=== PATIENT | female | born 1965 | race Two or more races ===

== ENCOUNTER → 2021-10-23 10:18 | Outpatient (BNVA) | payer OTHER, SELFPAY | PROVIDERS: PCP Physician Assistant Medical; Visit Provider Internal Medicine | DX: B20 Human immunodeficiency virus [HIV] disease (principal); C81.90 Hodgkin lymphoma, unspecified, unspecified site; Z79.899 Other long term (current) drug therapy | CPT/HCPCS: 99202 ==

== ENCOUNTER 2022-02-15 16:25 | Outpatient (REF) | payer OTHER, SELFPAY ==
[2022-02-15 16:48] LABS: MANUAL DIFF FLAG NO
[2022-02-15 17:17] LABS: Basophils Percent Auto 0.6 % (0-2); Eosinophils Absolute Auto 0.1 X10*3/uL (0.0-0.4); Eosinophils Percent Auto 1.5 % (0-4); Hematocrit 33.4 % (37.0-47.0); Hemoglobin 11.1 g/dl (12.0-16.0); Imm Gran Abs Auto 0.01 X10*3/uL (0.00-0.03); Imm Gran Pct Auto 0.3 % (0.0-0.4); Lymphocytes Absolute Auto 1.1 X10*3/uL (1.2-4.9); Mean Corpuscular HGB Conc 33.2 g/dl (31.0-35.0); Mean Corpuscular Hemoglobin 32.1 pg (27.0-33.0); Mean Corpuscular Volume 96.5 fL (80.0-98.0); Monocytes Absolute Auto 0.3 X10*3/uL (0.1-1.2); Monocytes Percent Auto 7.6 % (2-11); Platelet Count 196 X10*3/uL (160-400); Red Blood Count 3.46 X10*6/uL (4.20-5.50); White Blood Count 3.4 X10*3/uL (4.8-10.8)
[2022-02-15 17:43] LABS: Alanine Aminotransferase 13 U/L (0-31); Albumin Level 4.7 g/dL (3.5-5.0); Alkaline Phosphatase 164 U/L (39-117); Anion Gap 12 (12-20); Aspartate Amino Transferase 21 U/L (5-31); Bilirubin Direct 0.3 mg/dL (0.0-0.5); Bilirubin Total 1.2 mg/dL (0.0-1.0); Blood Urea Nitrogen 13 mg/dL (9-16); Calcium 9.9 mg/dL (8.4-10.2); Carbon Dioxide 27 mmol/L (22-29); Chloride 106 mmol/L (96-108); Estimated Glomerular Filt Rate > 60; Glucose Random 88 mg/dL (60-115); Potassium 4.5 mmol/L (3.3-5.1); Sodium 140 mmol/L (135-145); Total Protein 7.4 g/dL (6.5-8.0)
[2022-02-18 13:39] LABS: HIV RNA PCR Qn Copies NOT DETECTED copies/mL (NOT DETECTED); HIV RNA PCR Qn Log Copies NOT DETECTED (NOT DETECTED)
[2022-02-19 14:59] LABS: Absolute CD3 Count 961 cells/uL (840-3060); Absolute CD4 Count 332 cells/uL (490-1740); Absolute CD8 Count 640 cells/uL (180-1170); Absolute Lymphocytes 1093 cells/uL (850-3900); CD4 CD8 Ratio 0.52 (0.86-5.00); Percent CD3 Cells 88 % (57-85); Percent CD4 Cells 30 % (30-61); Percent CD8 Cells 59 % (12-42)
== END 2022-02-15 16:26 | disposition home or self-care (01) ==
LOC: HO.LAB 16:25
PROVIDERS: Visit Provider Internal Medicine
DX: B20 Human immunodeficiency virus [HIV] disease (principal)
CPT/HCPCS: 36415; 80048; 80076; 85025; 86359; 86360; 87536

== ENCOUNTER → 2022-02-22 13:34 | Outpatient (BNVA) | payer OTHER, SELFPAY | PROVIDERS: PCP Physician Assistant Medical; Visit Provider Internal Medicine | DX: B20 Human immunodeficiency virus [HIV] disease (principal) | CPT/HCPCS: 99212 ==

== ENCOUNTER 2022-08-28 14:21 | Outpatient (AMB) | payer OTHER, SELFPAY ==
[2022-08-28 14:39] VITALS: BP 110/60; PULSE 78; O2SAT 98; BMI 26.2
--- NOTE | 2022-08-28 14:39 | A.OFFVIS_ITS ---
Intake Vital Signs 08/28/22 14:39 Height 5 ft Weight 134 lb BMI 26.2 BP 110/60 Pulse 78 Pulse Oximetry (%) 98 Intake Visit Reasons: HIV [facility] labs follow up Water Plant Pump Operator Name: Felipa Barclay Sulfa (Sulfonamide Antibiotics) Allergy (Mild, Verified 08/28/22 14:40) Unknown HPI HIV [facility] labs follow up HPI Details She is here for HIV care. She has not been taking descovy last month as it ran out she says. I talked to Bill at [facility] and he is making sure she gets it. Her viral load is still undetectable. [facility] Medical History AIDS Compression fracture of body of thoracic vertebra History of thyroid cancer HIV (human immunodeficiency virus infection) Hodgkin disease Left axillary artery thrombus Surgical History H/O kyphoplasty Family History Other Hypertension Social History Alcohol intake: never Patient Tobacco Use Status: Never used Tobacco Review of Systems Const All systems reviewed & are unremarkable except as noted in HPI and below Physical Exam Vital Signs: Last Vital Signs Pulse 78 08/28/22 14:39 BP 110/60 08/28/22 14:39 Pulse Ox 98 08/28/22 14:39 BMI result Body Mass Index 26.2 Const General: cooperative Orientation/consciousness: patient oriented x3 HEENT Head: Yes normal to inspection Mouth: Normal oral and palatal mucosa present Eyes General: appearance normal, both eyes and all related structures Pupils: Equal, round and reactive pupils present Resp Effort & Inspection: normal respiratory effort Cardio Rate: regular rate Rhythm: regular rhythm GI Palpation (GI): Soft to palpation and nontender General: Yes no CVA tenderness Back/Spine/Pelvis Back: no CVA tenderness Skin General skin exam: no rashes or lesions noted Neuro General: patient oriented x3 Cranial nerves: Yes CN's II-XII intact bilaterally and Yes Equal, round and reactive pupils present Extrem General: Yes normal to inspection Psych Appearance: grossly normal Assessment & Plan Assessment & Plan (1) HIV (human immunodeficiency virus infection): Comment: She has been doing well with viral load undetectable . Once again she has only been taking half of her HIV regimen. Code(s): B20 - Human immunodeficiency virus [HIV] disease Plan: Continue Descovy with tivicay. See in six months and check labs before. Today customer acquisition specialist was angy ,number [phone]. Coding Level of Care Code Est Pt Level 3 (28929) Diagnoses HIV (human immunodeficiency virus infection) B20
== END 2022-08-28 15:15 | disposition home or self-care (01) ==
LOC: HO.HID 14:21
PROVIDERS: PCP Physician Assistant Medical; Visit Provider Internal Medicine
DX: B20 Human immunodeficiency virus [HIV] disease (principal)
CPT/HCPCS: 99213

== ENCOUNTER → 2022-08-28 14:21 | Outpatient (BNVA) | payer OTHER, SELFPAY | PROVIDERS: PCP Physician Assistant Medical; Visit Provider Internal Medicine | DX: B20 Human immunodeficiency virus [HIV] disease (principal) | CPT/HCPCS: 99212 ==

== ENCOUNTER 2023-11-14 10:13 | Outpatient (REF) | payer MEDICAID, SELFPAY ==
[2023-11-14 10:30] LABS: MANUAL DIFF FLAG NO
[2023-11-14 10:52] LABS: Basophils Percent Auto 0.6 % (0-2); Eosinophils Percent Auto 0.6 % (0-4); Imm Gran Abs Auto 0.01 X10*3/uL (0.00-0.03); Imm Gran Pct Auto 0.3 % (0.0-0.4); Lymphocytes Absolute Auto 1.4 X10*3/uL (1.2-4.9); Lymphocytes Percent Auto 40.2 % (20-40); Mean Corpuscular HGB Conc 34.2 g/dl (31.0-35.0); Mean Corpuscular Hemoglobin 32.7 pg (27.0-33.0); Mean Corpuscular Volume 95.7 fL (80.0-98.0); Mean Platelet Volume 9.4 fL (9.4-12.3); Monocytes Absolute Auto 0.3 X10*3/uL (0.1-1.2); Monocytes Percent Auto 7.6 % (2-11); Neutrophils Absolute Auto 1.8 x10*3/uL (2.0-8.3); Neutrophils Percent Auto 50.7 % (45-73); Platelet Count 152 X10*3/uL (160-400); Red Blood Count 3.97 X10*6/uL (4.20-5.50); Red Cell Distribution Width 11.9 % (11.0-16.0); White Blood Count 3.6 X10*3/uL (4.8-10.8)
[2023-11-14 11:51] LABS: Alanine Aminotransferase 16 U/L (0-31); Albumin Level 4.7 g/dL (3.5-5.0); Alkaline Phosphatase 119 U/L (39-117); Anion Gap 11 (12-20); Aspartate Amino Transferase 17 U/L (5-31); Bilirubin Direct 0.2 mg/dL (0.0-0.5); Bilirubin Total 0.9 mg/dL (0.0-1.0); Blood Urea Nitrogen 18 mg/dL (9-16); Calcium 10.1 mg/dL (8.4-10.2); Carbon Dioxide 27 mmol/L (22-29); Chloride 106 mmol/L (96-108); Estimated Glomerular Filt Rate > 60; Glucose Random 95 mg/dL (60-115); Potassium 4.4 mmol/L (3.3-5.1); Sodium 140 mmol/L (135-145)
[2023-11-15 04:40] LABS: ~HepC Num1 0.13 S/CO (0.00-0.79); ~Hepatitis C Antibody Nonreactive (Nonreactive)
[2023-11-18 02:33] LABS: HIV RNA PCR Qn Copies NOT DETECTED copies/mL (NOT DETECTED); HIV RNA PCR Qn Log Copies NOT DETECTED (NOT DETECTED)
[2023-11-18 22:50] LABS: Absolute CD3 Count 1161 cells/uL (840-3060); Absolute CD4 Count 423 cells/uL (490-1740); Absolute CD8 Count 755 cells/uL (180-1170); Absolute Lymphocytes 1531 cells/uL (850-3900); CD4 CD8 Ratio 0.56 (0.86-5.00); Percent CD3 Cells 76 % (57-85); Percent CD4 Cells 28 % (30-61); Percent CD8 Cells 49 % (12-42)
== END 2023-11-14 10:14 | disposition home or self-care (01) ==
LOC: HO.LAB 10:13
PROVIDERS: Visit Provider Internal Medicine
DX: B20 Human immunodeficiency virus [HIV] disease (principal)
CPT/HCPCS: 36415; 80048; 80076; 85025; 86359; 86360; 86803; 87536

== ENCOUNTER 2023-12-10 14:13 | Outpatient (AMB) | payer MEDICAID, SELFPAY ==
--- NOTE | 2023-12-10 14:15 | A.OFFVIS_ITS ---
Vital Signs 12/10/23 14:52 Weight 157 lb BP 142/70 H Blood Pressure Location Lt brachial Position Sitting Pulse 86 Pulse Source Pulse Oximeter Pulse Oximetry (%) 99 Oxygen Delivery Method Room Air Intake Visit Reasons: hiv reestablishing Bus And Trolley Inspecting Dispatcher Required: Yes Bus And Trolley Inspecting Dispatcher Services: Bus And Trolley Inspecting Dispatcher Present Bus And Trolley Inspecting Dispatcher Name: Emre Muñoz CMA Information Interpreted: clinical only Rn Documentation Specialist: Rn Documentation Specialist Present Allergies Sulfa (Sulfonamide Antibiotics) Allergy (Mild, Verified 12/10/23 14:57) Unknown HPI HPI hiv reestablishing: Details: She has seen me for HIV in past. Her CD4 count is 423 and viral load undetectable on 11/13. She feels well. She looks great [facility] Medical History HIV (human immunodeficiency virus infection) Hodgkin disease Compression fracture of body of thoracic vertebra Left axillary artery thrombus History of thyroid cancer AIDS Surgical History H/O kyphoplasty Family History Other Hypertension Social History Alcohol intake: never Patient Tobacco Use Status: Never used Tobacco Review of Systems Const All systems reviewed & are unremarkable except as noted in HPI and below Physical Exam Vital Signs: Last Vital Signs Pulse 86 12/10/23 14:52 BP 142/70 H 12/10/23 14:52 Pulse Ox 99 12/10/23 14:52 Oxygen Delivery Method Room Air 12/10/23 14:52 Const General: cooperative Orientation/consciousness: patient oriented x3 HEENT Head: Yes normal to inspection Mouth: Normal oral and palatal mucosa present Eyes General: appearance normal, both eyes and all related structures Pupils: Equal, round and reactive pupils present Resp Effort & Inspection: normal respiratory effort Cardio Rate: regular rate Rhythm: regular rhythm GI Palpation (GI): Soft to palpation and nontender General: Yes no CVA tenderness Back/Spine/Pelvis Back: no CVA tenderness Skin General skin exam: no rashes or lesions noted Neuro General: patient oriented x3 Cranial nerves: Yes CN's II-XII intact bilaterally and Yes Equal, round and reactive pupils present Extrem General: Yes normal to inspection Psych Appearance: grossly normal Assessment & Plan Assessment & Plan (1) HIV (human immunodeficiency virus infection): Comment: She is doing well and looks great. No further chemotherapy needed,Hodgkins resolved. Code(s): B20 - Human immunodeficiency virus [HIV] disease Category: Medical Plan: Switch to po Biktarvy and stop Tivicay and Descovy. Check CD4 count and viral load before next appointment. Consider statin. Rectal Pap. Osteoporosis screening. See in six months Orders: Orders Lymphocyte Subset Panel 3 6 Months B20 - Human immunodeficiency virus [HIV] disease HIV-1 RNA QN PCR Expanded 6 Months B20 - Human immunodeficiency virus [HIV] disease Medications: New bncyexeau-vgdsdnnj-sdmgnls ala 50-200-25 mg (Biktarvy) 1 tab PO DAILY 30 tabs 5RF 30 days Discontinued emtricitabine-tenofovir alafen 200-25 mg (Descovy) Discontinued Reason: Doctor's Order 1 tab PO QAM 30 days 30 tabs 2RF dolutegravir (Tivicay) Discontinued Reason: Doctor's Order 50 mg PO DAILY 30 days 30 tabs 2RF Coding Level of Care Code Est Pt Level 3 (35337) Diagnoses HIV (human immunodeficiency virus infection) B20
[2023-12-10 14:52] VITALS: BP 142/70; PULSE 86; O2SAT 99
== END 2023-12-10 15:28 | disposition home or self-care (01) ==
LOC: HO.HID 14:14
PROVIDERS: PCP Physician Assistant Medical; Visit Provider Internal Medicine
DX: B20 Human immunodeficiency virus [HIV] disease (principal)
CPT/HCPCS: 99213

== ENCOUNTER → 2023-12-10 14:13 | Outpatient (BNVA) | payer MEDICAID, SELFPAY | PROVIDERS: PCP Physician Assistant Medical; Visit Provider Internal Medicine | DX: B20 Human immunodeficiency virus [HIV] disease (principal) | CPT/HCPCS: 99212 ==

== ENCOUNTER 2024-06-09 12:41 | Outpatient (REF) | payer MEDICAID, SELFPAY ==
--- OUTSIDE RECORDS SUMMARY | 2024-06-09 14:59 | XMS_ITS | Encounter Summary ---
Author Organization [facility] Address [address] [place] [address] Care Team Providers Care Mainspring Winder And Oiler Name Role Phone Junie Blevins MD Primary Care Provider [phone] Encounter Details Date Type Department Care Team Description 07/04/2021 Social Work [facility] [address] [place] [address] Ramone Roland MSW Social History Tobacco Use Types Packs/Day Years Used Date Smoking Tobacco: Never Smokeless Tobacco: Never Alcohol Use Standard Drinks/Week Comments Never 0 (1 standard drink = 0.6 oz pur e alcohol) Sex and Gender Information Value Date Recorded Sex Assigned at Female 07/13/2021 2:51 PM EDT Gender Identity Female 08/24/2021 10:49 AM EDT Sexual Orientation Straight 08/24/2021 10 :49 AM EDT Job Start Date Occupation Industry Not on file Not on file Not on file COVID-19 Exposure Response Date Recorded In the last 10 days, have yo u been in contact with someone who was confirmed or suspected to have Coronavirus/COVID-19? No / Unsure 07/04/2021 9:24 AM EDT documented as of this encounter Progress Notes * Ramone Roland MSW - 07/04/2021 12:04 PM EDT Social Work Progress Note Patient: Amy Foster Date of : 1965 SW met with patient for initial assessment. Patient is 56 yo female with diagnosis of hodgkin lymphoma. Patient lives with one of her daughters, is not .Patient denies any insurances or financial need. Patient was accompanied by one of her daughter today. Patient reported having SNAP benefits and would like assistance with fill out application for the department of assistance transitional.SW will meet with patient tomorrow during treatment and will continue to provide support as needed. RICCO Milton documented in this encounter Plan of Treatment Not on file documented as of this encounter Visit Diagnoses Not on filedocumented in this encounter Care Teams Mainspring Winder And Oiler Relationship Specialty Start Date End Date Junie Blevins MD [address] [place] [phone] PCP - General Pediatrics 12/18/21 documented as of this encounter
--- OUTSIDE RECORDS SUMMARY | 2024-06-09 14:59 | XMS_ITS | Encounter Summary ---
Author Organization [facility] Address [address] [place] [address] Care Team Providers Care Datastage Consultant Name Role Phone Junie Blevins MD Primary Care Provider [phone] Encounter Details Date Type Department Care Team Description 11/20/2021 Social Work [facility] [address] [place] [address] Ramone Roland, [facility] Social History Tobacco Use Types Packs/Day Years [...] suspected to have Coronavirus/COVID-19? No / Unsure 11/22/2021 9:44 AM EDT documented as of this encounter Plan of Treatment Not on file documented as of this encounter Visit Diagnoses Not on filedocumented in this encounter Care Teams Datastage Consultant Relationship Specialty Start Date End Date Junie Blevins MD [address] [place] [phone] PCP - General Pediatrics 12/18/21 documented as of this encounter
--- OUTSIDE RECORDS SUMMARY | 2024-06-09 14:59 | XMS_ITS | Encounter Summary ---
Author Organization [facility] Address [address] [place] [address] Care Team Providers Care Cms Expert Name Role Phone Junie Blevins MD Primary Care Provider [phone] Encounter Details Date Type Department Care Team Description 01/16/2022 Social Work [facility] [address] [place] [address] Ramone Roland, [facility] Social History Tobacco Use Types Packs/Day Years [...] suspected to have Coronavirus/COVID-19? No / Unsure 01/15/2022 10:01 AM EST documented as of this encounter Plan of Treatment Not on file documented as of this encounter Visit Diagnoses Not on filedocumented in this encounter Care Teams Cms Expert Relationship Specialty Start Date End Date Junie Blevins MD [address] [place] [phone] PCP - General Pediatrics 12/18/21 documented as of this encounter
--- OUTSIDE RECORDS SUMMARY | 2024-06-09 14:59 | XMS_ITS | Clinical Summary ---
Author Organization [facility] Address [address] [place] [address] Care Team Providers Care Glycerin Operator Name Role Phone Junie Blevins MD Primary Care Provider [phone] Allergies No known active allergies Medications Medication Sig Dispensed Refills Start Date End Date Status lidocaine-prilocain e (EMLA) cream Apply topically as needed. To [facility] area 1 hour prior to access 30 g 0 06/04/2021 Active Tivicay 50 MG TABS tablet Take 50 mg by mouth daily. 0 10/09/2021 Active Descovy 200-25 MG TABS per tablet Take 1 tablet by mouth daily. 0 10/09/2021 Active atovaquone (MEPRON) 750 MG/5ML suspension TAKE 5 ML BY MOUTH TWICE A DAY 0 10/10/2021 Active azithromycin (ZITHROMAX) 500 MG tablet Take 500 mg by mouth daily. 0 10/09/2021 Active fluconazole (DIFLUCAN) 100 MG tablet Take 100 mg by mouth daily. 0 10/09/2021 Active oxyCODONE-acetamino phen (PERCOCET) 5-325 MG per tablet Take 1 tablet by mouth every 8 (eight) hours as needed for pain. 30 tablet 0 11/21/2021 Active omeprazole (PriLOSEC) 20 MG capsule Take 1 capsule (20 mg total) by mouth daily. 30 capsule 5 01/01/2022 Active furosemide (LASIX) 40 MG tablet Take 1 tablet (40 mg total) by mouth daily. 0 08/07/2022 Active Entresto 49-51 MG per tablet Take 1 tablet by mouth 2 (two) times a day. 0 08/22/2022 Active spironolactone (ALDACTONE) tablet 25 mg Take 1 tablet (25 mg total) by mouth daily. 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 07/04/2021 Lymphocytopenia 07/04/2021 Hypoalbuminemia 07/04/2021 COVID-19 07/04/2021 Constipation 07/04/2021 Hodgkin lymphoma of lymph nodes of multiple tukcer ons 06/04/2021 Pleural effusion 06/04/2021 Thyroid cancer 06/04/2021 Neoplastic (malignant) related fatigue Nausea 06/04/2021 Acute embolism and thrombosis of left internal j ugular vein 06/04/2021 Social History Tobacco Use Types Packs/Day Years [...] file Not on file Not on file Last Filed Vital Signs Vital Sign Reading Time Taken Comments Blood Pressure 91/59 08/28/2022 10:56 AM EDT Pulse 81 08/28/2022 10:52 AM EDT Temperature 36.1 ??C (97 ??F) 08/28/2022 10: 52 AM EDT Respiratory Rate 18 01/16/2022 3:00 PM EST Oxygen Saturation 99% 08/28/2022 10: 52 AM EDT Inhaled Oxygen Concentration - - Weight 60.2 kg (132 lb 12.8 oz) 023 10:52 AM EDT Height 154.9 cm (5' 0.98 ) 12/04/2021 4:33 PM ED T Body Mass Index 25.11 12/04/2021 4:33 PM EDT Plan of Treatment Health Maintenance Due Date Last Done Comments Hepatitis C Screening 1965 COVID-19 Vaccine (#1) 1969 Pneumococcal Vaccine (1 of 2 - PCV) 1970 Depression Screening 1976 BMI Counseling 1982 Preventative Health Evaluation 1982 DTap / Tdap / Td (1 - Tdap) 05/09/1983 Shingrix-Zoster Vaccine (1 of 2) 05/09/1983 Cervical Cancer Screening (P ap Smear) 1985 Colon Cancer Screening (Colonoscopy) 2009 Breast Cancer Screening (Mammogram) 2014 Influenza Vaccine (#1) 2023 Hepatitis B Vaccines (1 of 3 - Risk 3-dose series) 2024 RSV Adult > 60+ Yrs or Pregn ant (1 - Risk 60-74 years 1-dose series) 2024 RSV Ped < 20 months Aged Out No longe r eligible based on patient's age to complete this topic Care Teams Glycerin Operator Relationship Specialty Start Date End Date Junie Blevins MD [address] [place] [phone] PCP - General Pediatrics 12/18/21
--- OUTSIDE RECORDS SUMMARY | 2024-06-09 14:59 | XMS_ITS ---
Author Organization [facility] Address [address] [place] [address] Care Team Providers Care Broom Worker Name Role Phone Junie Blevins MD Primary Care Provider [phone] Active Problems Problem Noted Date Diagnosed Date Acute systolic congestive heart failure 08/29/19 Pneumonia of both lungs due to Pneumocystis jiro vecii 10/31/2021 Overview: presumed, ICU treatment 09/2021 , ID F/up Symptomatic HIV infection 10/31/2021 Oral mucositis 09/20/2021 Weight loss 08/13/2021 Closed fracture of twelfth thoracic vertebra Chemotherapy-induced neutropenia 08/06/2021 Dehydration 08/06/2021 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 Past Plans ONCOLOGY TREATMENT Plan Name Start Date Discontinue Date Treatment Medications Discontinue Reason Plan Provider Cycles [facility] BCN OP ABVD - DOXORUBICIN / BLEOMYCIN / VINBLASTINE / DACARBAZINE (4 HRS) 06/02/19 22 01/16/2022 acetaminophen (TYLENOL EXTRA STRENGTH) 500 MGbleomycin (BLENOXANE) chemo infusionbrentuximab (ADCETRIS) IVPBdacarbazine (DTIC) chemo infusiondexamethasone (DECADRON)diphenhydrAM INE (BENADRYL)DOXOrubicin (ADRIAMYCIN)fosaprepit ant IV Piggybackpalonosetron (ALOXI)pegfilgrastim (biosimilar orderable)pegfilgrasti m-jmdb (FULPHILA)potassium chloride ERSaline Flush 0.9 %sodium chloride (NS) 0.9 %vinBLAStine (VELBAN) chemo infusion Therapy Complete Negin Henry MD 6 of 6 cycles started Radiation Treatments * No radiation treatments are documented for this patient in [facility]. Treatments may have been administered in another system. Lifetime Dose Tracking * Chemical Lifetime Dose Automatic Entry Manual Entr y Doxorubicin 327.64 mg/m2 (509 mg) 252.64 mg/m2 (392 m g) 75 mg/m2 (117 mg)
--- OUTSIDE RECORDS SUMMARY | 2024-06-09 15:00 | XMS_ITS | Patient Health Record ---
Author Organization [facility] Address [address] [place] [address] Support Name Relationship Address Phone ASHLEE GALLEGOS Emergency Contact BRETA JOHNSON APTS EDIF D [address] [place] [address] NAVARRO NUNEZ Guarantor Unknown [phone] Allergies Allergen (clinical drug ingredient) Drug/Non Drug Allergy documented on EMR Reaction Allergy Type Onset Date Status Substance with sulfonamide structure and antibacterial mechanism of action (substance) Sulfa Antibiotics Unknown Drug Allergy Active Reason For Referral No Information Medications Medication SIG (Take, Route, Frequency, Duration) Notes Start Date End Date Status diphenhydrAMINE HCl 50 MG/ML 50mg/ml Injection once 01/12/2021 Active Isentress 400 MG 1 tablet Orally Twic e a day Active Montelukast Sodium 10 MG 1 tablet Orally Once a day Active Rosuvastatin Calcium 10 MG 1 tablet Oral ly Once a day Active Albuterol Sulfate (2.5 MG/3ML) 0.083% 3 ml as needed Inhalation every 6 hrs Active Flovent HFA 44 MCG/ACT 1 puff Inhalation Twice a day Active Social History Sex Assigned At : Social History Observation Description Sex Assigned At Female Plan Of Treatment No Information Insurance Providers Payer Name Payer Address Payer Phone Subscriber Number Group Number Insured Name Patient Relationship to Insured Coverage Start Date Coverage End Date [employer] DESRUTHO ARMANI [address] [place] [address] [phone] [id number] NAVARRO NUNEZ Self - patient is the insured Medical (General) History Medical History History ICD Code ASTHMA HIPERTENSION VIH
--- OUTSIDE RECORDS SUMMARY | 2024-06-09 15:00 | XMS_ITS | Encounter Summary ---
Author Organization [facility] Address [address] [place] [address] Care Team Providers Care Supervisor Final Name Role Phone Junie Blevins MD Primary Care Provider [phone] Encounter Details Date Type Department Care Team Description 05/14/2022 Social [facility] [address] [place] [address] Ramone Roland [facility] Social History Tobacco Use Types Packs/Day Years [...] file Not on file Not on file documented as of this encounter Plan of Treatment Not on file documented as of this encounter Visit Diagnoses Not on filedocumented in this encounter Care Teams Supervisor Final Relationship Specialty Start Date End Date Junie Blevins MD [address] [place] [phone] PCP - General Pediatrics 12/18/21 documented as of this encounter
--- OUTSIDE RECORDS SUMMARY | 2024-06-09 15:00 | XMS_ITS | Encounter Summary ---
Author Organization [facility] Address [address] [place] [address] Care Team Providers Care Quality Improvement Coordinator Name Role Phone Junie Blevins MD Primary Care Provider [phone] Encounter Details Date Type Department Care Team Description 05/28/2022 Social [facility] [address] [place] [address] Ramone Roland, [facility] Social History Tobacco Use Types Packs/Day Years [...] suspected to have Coronavirus/COVID-19? No / Unsure 05/28/2022 11:16 AM EDT documented as of this encounter Plan of Treatment Not on file documented as of this encounter Visit Diagnoses Not on filedocumented in this encounter Care Teams Quality Improvement Coordinator Relationship Specialty Start Date End Date Junie Blevins MD [address] [place] [phone] PCP - General Pediatrics 12/18/21 documented as of this encounter
--- OUTSIDE RECORDS SUMMARY | 2024-06-09 15:00 | XMS_ITS | Clinical Summary ---
Author Organization [facility] Address [address] [place] [address] Care Team Providers Care Joiners Supervisor Name Role Phone Passer, Ayse MENA Primary Care Provider [phone] Allergies No known active allergies Medications furosemide (LASIX) 40 mg tablet Take 1 tablet (40 mg total) by mouth 1 (one) time each day. Active spironolactone (ALDACTONE) 25 mg tablet Take 1 tablet (25 mg total) by mouth 1 (one) time each day. Active dolutegravir (TIVICAY) 50 mg tablet Take 1 tablet (50 mg total) by mouth 1 (one) time each day. Active sacubitriL-valsa rtan (Entresto) 49-51 mg per tablet Take 1 tablet by mouth 2 (two) times a day. Active dapagliflozin propanediol (FARXIGA) 5 mg tablet Take by mouth daily. Active omeprazole 20 mg tablet,disintegr at, delay rel Take by mouth daily. Active emtricitabine-ri lpivirine-tenofo vir alafenamide (Odefsey) 200-25-25 mg per tablet Take by mouth daily. Active senna-docusate (PERICOLACE) 8.6-50 mg per tablet Take 2 tablets by mouth 1 (one) time each day. Active Active Problems Problem Noted Date Diagnosed Date Cardiomyopathy (CMS/HCC V24, CMS/HCC V28) 2022 Overview (03/23/2024): Last Assessment & Plan: Echocardiogram July 2022 revealed EF 15-20%. ACC/AHA Stage C With NYHA class II symptoms. Patient euvolemic upon exam today. She will continue on current dose of Entresto 45/51, Spironolactone 25 mg, Lasix 40 mg. Blood pressure is favorable today with a reading of 114/62. We will introduce Metoprolol succinate 12.5 mg. She was educated on the side effects of this medication including dizziness and fatigue and will contact our office should she begin to experience these symptoms. I spoke to the patient in detail about performing a cardiac catheterization to rule out an ischemic etiology for her reduced EF. BMP, CBC and INR ordered pre procedure. She will also be scheduled for a cardiac MRI to exlude other etiologies. Chronic systolic heart failure (CMS/HCC V24, CMS /HCC V28) 10/04/2022 Overview (03/23/2024): Last Assessment & Plan: Euvolemic upon exam today. Patient educated on the importance of following a low sodium diet, the importance of performing daily weights and monitoring for symptoms of volume overload such as weight gain of 2 pounds in 1 day for 4 pounds in 4 days, SOB, KAY and BLEE. She was given informational hand outs in Latvian on symptom recognition and when to seek medical care. She will continue on her current doses of GDMT of Spironolactone, Entresto, Lasix and we will add Metoprolol Succinate 12.5 mg. Patient will follow-up in 2 months post cardiac catheterization and at that will consider continuation of medication titration. Social History Tobacco Use Types Packs/Day Years Used Date Smoking Tobacco: Never Smokeless Tobacco: Never Alcohol Use Standard Drinks/Week Comments Never 0 (1 standard drink = 0.6 oz pur e alcohol) Comments Unknown Sex and Gender Information Value Date Recorded Sex Assigned at Not on file Legal Sex Female 4:50 AM EST Gender Identity Not on file Sexual Orientation Not on file Obstetrics History Last Filed Vital Signs Vital Sign Reading Time Taken Comments Blood Pressure 115/62 10/08/2022 8:31 AM EDT Sit ting L Arm Pulse 86 10/08/2022 8:31 AM EDT Temperature - - Respiratory Rate - - Oxygen Saturation - - Inhaled Oxygen Concentration - - Weight 60.3 kg (133 lb) 10/08/2022 8:31 AM EDT Height 154.9 cm (5' 1 ) 10/08/2022 8:31 AM EDT Body Mass Index 25.13 10/08/2022 8:31 AM EDT Plan of Treatment Upcoming Encounters Date Type Department Care Team (Late st Contact Info) Description 06/28/2024 1:40 PM EDT Office Visit [facility] [address] [place] [address] Vasyl Armstrong NP [address] [place] [address] [address] [place] [address] Health Maintenance Due Date Last Done Comments Breast Cancer Screening 1964 Meningococcal ACWY Vaccine ( 1 - Risk 2-dose series) 1966 COVID-19 Vaccine (#1) 1969 MMR Vaccines (1 of 2 - Risk 2-dose series) 1982 DTaP,Tdap,and Td Vaccines (1 - Tdap) 05/09/1983 Hepatitis A Vaccines (1 of 2 - Risk 2-dose series) 05/09/1983 Pneumococcal Vaccine: 50+ Ye ars (1 of 2 - PCV) 05/09/1983 Pneumococcal Vaccine: Pediat rics (0 to 5 Years) and At-Risk Patients (6 to 64 Years) (1 of 2 - PCV) 05/09/1983 Zoster Vaccines (1 of 2) 05/09/1983 Cervical Cancer Screening: P ap Smear 1985 Colorectal Cancer Screening: Colonoscopy 01/20/2022 Depression Screening 01/20/2022 Hepatitis C Screening 01/20/2022 Osteoporosis Screening (Bone Density Screening) 01/20/2022 Social Influencers of Health Screening 01/20/2022 Hypertension/CHF/CAD Annual BMP Blood Test 03/18/2023 Hepatitis B Vaccines (1 of 3 - Risk 3-dose series) 2024 RSV Immunization Adult Patie nts (1 - Risk 60-74 years 1-dose series) 2024 Influenza Vaccine (Season Ended) 2024 HIB Vaccines Aged Out No longer eligi ble based on patient's age to complete this topic HPV Vaccines Aged Out No longer eligi ble based on patient's age to complete this topic IPV Vaccines Aged Out No longer eligi ble based on patient's age to complete this topic Meningococcal B Vaccine Aged Out No l onger eligible based on patient's age to complete this topic RSV Immunization Patients Un vivian 20 months Aged Out No longer eligible b ased on patient's age to complete this topic Varicella Vaccines Aged Out No longer eligible based on patient's age to complete this topic Insurance [employer] [employer] Advance Directives Documents on File Type Date Recorded Patient Customer Sales Advisor Expl anation Health Care Decision (hx) 10/04/2021 AD COLLAZO DIRECTIVE Health Care Decision (hx) 10/04/2021 AD COLLAZO DIRECTIVE Health Care Decision (hx) 10/04/2021 AD COLLAZO DIRECTIVE Health Care Decision (hx) 10/04/2021 AD COLLAZO DIRECTIVE Health Care Decision (hx) 10/04/2021 AD COLLAZO DIRECTIVE Health Care Decision (hx) 10/04/2021 AD COLLAZO DIRECTIVE Health Care Decision (hx) 10/04/2021 AD COLLAZO DIRECTIVE Health Care Decision (hx) 10/04/2021 AD COLLAZO DIRECTIVE Health Care Decision (hx) 10/04/2021 AD COLLAZO DIRECTIVE Health Care Decision (hx) 10/04/2021 AD COLLAZO DIRECTIVE Health Care Decision (hx) 10/04/2021 AD COLLAZO DIRECTIVE Health Care Decision (hx) 10/04/2021 AD COLLAZO DIRECTIVE Health Care Decision (hx) 10/04/2021 AD COLLAZO DIRECTIVE Health Care Decision (hx) 10/04/2021 AD COLLAZO DIRECTIVE Care Teams Joiners Supervisor Relationship Specialty Start Date End Date Ayse Maier PA [address] [place] [address] PCP - General 10/08/22
[2024-06-11 20:03] LABS: HIV RNA PCR Qn Copies 4420 copies/mL (NOT DETECTED); HIV RNA PCR Qn Log Copies 3.65 (NOT DETECTED)
[2024-06-13 17:29] LABS: Absolute CD3 Count 1354 cells/uL (840-3060); Absolute CD4 Count 503 cells/uL (490-1740); Absolute CD8 Count 846 cells/uL (180-1170); Absolute Lymphocytes 1775 cells/uL (850-3900); CD4 CD8 Ratio 0.59 (0.86-5.00); Percent CD3 Cells 76 % (57-85); Percent CD4 Cells 28 % (30-61); Percent CD8 Cells 48 % (12-42)
== END 2024-06-09 12:42 | disposition home or self-care (01) ==
LOC: HO.LAB 12:41
PROVIDERS: Visit Provider Internal Medicine
DX: B20 Human immunodeficiency virus [HIV] disease (principal)
CPT/HCPCS: 36415; 86359; 86360; 87536

== ENCOUNTER 2024-06-25 14:38 | Outpatient (AMB) | payer MEDICAID, SELFPAY ==
--- NOTE | 2024-06-25 14:31 | A.OFFVIS_ITS ---
Vital Signs 06/25/24 14:39 Pulse 70 Pulse Oximetry (%) 98 Intake Visit Reasons: 6 month hiv labs Train Starter Required: Yes Train Starter Services: Train Starter Present Train Starter Name: Emre Muñoz CMA Information Interpreted: clinical only Manager Multicultural: Manager Multicultural Present Allergies Sulfa (Sulfonamide Antibiotics) Allergy (Mild, Verified 06/25/24 14:44) Unknown HPI HPI 6 month hiv labs: Details: Her CD4 count is 503 and viral load 4420 on 06/09. She says pharmacy runs out of medication producing gaps in prescribed meds. She takes Biktarvy and denies missing doses. [facility] Medical History HIV (human immunodeficiency virus infection) Hodgkin disease Compression fracture of body of thoracic vertebra Left axillary artery thrombus History of thyroid cancer AIDS Surgical History H/O kyphoplasty Family History Other Hypertension Social History Alcohol intake: never Patient Tobacco Use Status: Never used Tobacco Review of Systems Const All systems reviewed & are unremarkable except as noted in HPI and below Physical Exam Vital Signs: Last Vital Signs Pulse 70 06/25/24 14:39 Pulse Ox 98 06/25/24 14:39 Const General: cooperative Orientation/consciousness: patient oriented x3 HEENT Head: Yes normal to inspection Mouth: Normal oral and palatal mucosa present Eyes General: appearance normal, both eyes and all related structures Pupils: Equal, round and reactive pupils present Resp Effort & Inspection: normal respiratory effort Cardio Rate: regular rate Rhythm: regular rhythm GI Palpation (GI): Soft to palpation and nontender General: Yes no CVA tenderness Back/Spine/Pelvis Back: no CVA tenderness Skin General skin exam: no rashes or lesions noted Neuro General: patient oriented x3 Cranial nerves: Yes CN's II-XII intact bilaterally and Yes Equal, round and reactive pupils present Extrem General: Yes normal to inspection Psych Appearance: grossly normal Assessment & Plan Assessment & Plan (1) HIV (human immunodeficiency virus infection): Comment: She has viral load and can transmit virus but denies sexual activity. Code(s): B20 - Human immunodeficiency virus [HIV] disease Category: Medical Plan: Continue Biktarvy but recheck viral load in three months. Take medication by itself and take daily. See after labs done Coding Level of Care Code Est Pt Level 3 (88589) Diagnoses HIV (human immunodeficiency virus infection) B20
[2024-06-25 14:39] VITALS: PULSE 70; O2SAT 98
--- OUTSIDE RECORDS SUMMARY | 2024-06-25 14:40 | XMS_ITS | Encounter Summary ---
Author Organization [facility] Address [address] [place] [address] Care Team Providers Care Machine Group Leader Name Role Phone Junie Blevins MD Primary Care Provider [phone] Encounter Details Date Type Department Care Team Description 05/14/2022 [facility] [address] [place] [address] Ramone Roland [facility] Social History Tobacco Use Types Packs/Day Years [...] on filedocumented in this encounter Care Teams Machine Group Leader Relationship Specialty Start Date End Date Junie Blevins MD [address] [place] [phone] PCP - General Pediatrics 12/18/21 documented as of this encounter
--- OUTSIDE RECORDS SUMMARY | 2024-06-25 14:40 | XMS_ITS | Encounter Summary ---
Author Organization [facility] Address [address] [place] [address] Care Team Providers Care Quality Management Nurse Name Role Phone Junie Blevins MD Primary Care Provider [phone] Encounter Details Date Type Department Care Team Description 05/28/2022 Social [facility] [address] [place] [address] Ramone Roland, [facility] [place] Social History Tobacco Use Types Packs/Day Years [...] filedocumented in this encounter Care Teams Quality Management Nurse Relationship Specialty Start Date End Date Junie Blevins MD [address] [place] [phone] PCP - General Pediatrics 12/18/21 documented as of this encounter
--- OUTSIDE RECORDS SUMMARY | 2024-06-25 14:40 | XMS_ITS | Clinical Summary ---
Author Organization [facility] Address [address] [place] [address] Care Team Providers Care Assistant Auditor Name Role Phone Passer, Ayse MENA Primary Care Provider [phone] Allergies No known active allergies Medications furosemide [...] She was given informational hand outs in Swedish on symptom recognition and when to seek [...] Description 06/28/2024 1:40 PM EDT Office Visit [facility] [address] [address] [place] [address] Vasyl Armstrong NP [address] [place] [address] [address] [place] [address] Health Maintenance Due Date Last Done Comments [...] patient's age to complete this topic Insurance MEDICAID - [place] Advance Directives Documents on File Type Date Recorded Patient Window Dresser Expl anation Health Care Decision (hx) 10/04/2021 [...] Health Care Decision (hx) 10/04/2021 AD COLLAZO [facility] Care Teams Assistant Auditor Relationship Specialty Start Date End Date Ayse Maier PA [address] [place] [address] PCP - General 10/08/22
--- OUTSIDE RECORDS SUMMARY | 2024-06-25 14:40 | XMS_ITS ---
Author Organization [facility] Address [address] [place] [address] Care Team Providers Care Instructor Business Education Name Role Phone Junie Blevins MD Primary Care Provider [phone] Active Problems Problem Noted Date Diagnosed Date [...] Treatment Medications Discontinue Reason Plan Provider Cycles [facility] BCN OP ABVD - DOXORUBICIN / BLEOMYCIN [...] treatments are documented for this patient in [facility]. Treatments may have been administered in another system. Lifetime Dose Tracking * Chemical Lifetime Dose Automatic Entry Manual Entr y Doxorubicin 327.64 mg/m2 (509 mg) 252.64 mg/m2 (392 m g) 75 mg/m2 (117 mg)
--- OUTSIDE RECORDS SUMMARY | 2024-06-25 14:40 | XMS_ITS | Encounter Summary ---
Author Organization [facility] Address [address] [place] [address] Care Team Providers Care Smooth Plater Name Role Phone Junie Blevins MD Primary Care Provider [phone] Encounter Details Date Type Department Care Team Description 07/04/2021 [facility] [address] [place] [address] Ramone Roland MSW Social History Tobacco Use [...] on filedocumented in this encounter Care Teams Smooth Plater Relationship Specialty Start Date End Date Junie Blevins MD [address] [place] [phone] PCP - General Pediatrics 12/18/21 documented as of this encounter
--- OUTSIDE RECORDS SUMMARY | 2024-06-25 14:40 | XMS_ITS | Clinical Summary ---
Author Organization [facility] Address [address] [place] [address] Care Team Providers Care Venue Coordinator Name Role Phone Junie Blevins MD Primary Care Provider [phone] Allergies No known active allergies Medications Medication Sig Dispensed Refills Start Date End Date Status lidocaine-prilocain e (EMLA) cream Apply topically as needed. [facility] 1 hour prior to access 30 [...] age to complete this topic Care Teams Venue Coordinator Relationship Specialty Start Date End Date Junie Blevins MD [address] [place] [phone] PCP - General Pediatrics 12/18/21
--- OUTSIDE RECORDS SUMMARY | 2024-06-25 14:40 | XMS_ITS | Encounter Summary ---
Author Organization [facility] Address [address] [place] [address] Care Team Providers Care Fish And Wildlife Scientific Aid Name Role Phone Junie Blevins MD Primary Care Provider [phone] Encounter Details Date Type Department Care Team Description 01/16/2022 [facility] [address] [place] [address] Ramone Roland, [facility] Social History Tobacco Use Types Packs/Day Years [...] on filedocumented in this encounter Care Teams Fish And Wildlife Scientific Aid Relationship Specialty Start Date End Date Junie Blevins MD [address] [place] [phone] PCP - General Pediatrics 12/18/21 documented as of this encounter
--- OUTSIDE RECORDS SUMMARY | 2024-06-25 14:40 | XMS_ITS | Encounter Summary ---
Author Organization [facility] Address [address] [place] [address] Care Team Providers Care Tabulating Machine Mechanic Name Role Phone Junie Blevins MD Primary Care Provider [phone] Encounter Details Date Type Department Care Team Description 11/20/2021 Social [facility] [address] [place] [address] Ramone Roland, [facility] Social History Tobacco Use Types Packs/Day Years [...] on filedocumented in this encounter Care Teams Tabulating Machine Mechanic Relationship Specialty Start Date End Date Junie Blevins MD [address] [place] [phone] PCP - General Pediatrics 12/18/21 documented as of this encounter
--- OUTSIDE RECORDS SUMMARY | 2024-06-25 14:40 | XMS_ITS | Patient Health Record ---
Author Organization [facility] Address [address] [place] [address] Support Name Relationship Address Phone ASHLEE GALELGOS Emergency Contact BERTA JOHNSON APTS [address] [place] [address] NAVARRO NUNEZ Guarantor Unknown Allergies Allergen (clinical drug ingredient) Drug/Non Drug [...] UB PLAN DE JENA MENONITA VITAL DESRUTHO GAYLAANO KISHOR [address] [place] [id number] NAVARRO NUNEZ Self - patient is the insured Medical (General) History Medical History History ICD Code ASTHMA HIPERTENSION VIH
== END 2024-06-25 15:22 | disposition home or self-care (01) ==
LOC: HO.HID 14:38
PROVIDERS: PCP Physician Assistant Medical; Visit Provider Internal Medicine
DX: B20 Human immunodeficiency virus [HIV] disease (principal)
CPT/HCPCS: 99213

== ENCOUNTER → 2024-06-25 14:38 | Outpatient (BNVA) | payer MEDICAID, SELFPAY | PROVIDERS: PCP Physician Assistant Medical; Visit Provider Internal Medicine | DX: B20 Human immunodeficiency virus [HIV] disease (principal) | CPT/HCPCS: 99212 ==

== ENCOUNTER 2024-09-16 11:45 | Outpatient (REF) | payer MEDICAID, SELFPAY ==
--- OUTSIDE RECORDS SUMMARY | 2024-09-16 12:25 | XMS_ITS | Encounter Summary ---
Author Organization [facility] Address [address] [place] [address] Care Team Providers Care Flatwork Finisher Name Role Phone Junie Blevins MD Primary Care Provider [phone] Encounter Details Date Type Department Care Team Description 11/20/2021 [facility] [address] [place] [address] Ramone Roland, [facility] [place] Social History Tobacco Use Types Packs/Day Years [...] on filedocumented in this encounter Care Teams Flatwork Finisher Relationship Specialty Start Date End Date Junie Blevins MD [address] [place] [phone] PCP - General Pediatrics 12/18/21 documented as of this encounter
--- OUTSIDE RECORDS SUMMARY | 2024-09-16 12:25 | XMS_ITS | Clinical Summary ---
Author Organization [facility] Address [address] [facility] [place] [address] Phone Care Team Providers Care Christmas Tree Grader Name Role Phone Passer, Ayse MENA Primary Care Provider [phone] Allergies No known active allergies Medications furosemide [...] She was given informational hand outs in Angolan on symptom recognition and when to seek medical care. She will continue on her current doses of GDMT of Spironolactone, Entresto, Lasix and we will add Metoprolol Succinate 12.5 mg. Patient will follow-up in 2 months post cardiac catheterization and at that will consider continuation of medication titration. Encounters Date Type Department Care Team Description 07/06/2024 Telephone [facility] [address] [facility] [address] [place] [address] Vasyl Armstrong NP No Call No Show (Letter sent) from Last 3 Months Social History Tobacco Use Types Packs/Day Years [...] Care Team (Late st Contact Info) Description 11/01/2024 1:10 PM EDT Office Visit [facility] [address] [place] [address] CycVasyl wilkinson NP [address] [place] [address] [address] [place] [address] Health Maintenance Due Date Last Done Comments [...] ars (1 of 2 - PCV) 05/09/1983 Zoster Vaccines (1 of 2) 05/09/1983 Cervical Cancer Screening: P ap Smear 1985 Colorectal Cancer Screening: Colonoscopy 01/20/2022 Hepatitis C Screening 01/20/2022 Social Influencers of Health Screening 01/20/2022 Hypertension/CHF/CAD Annual BMP Blood Test 03/18/2023 Depression Screening 02/18/2024 Hepatitis B Vaccines (1 of 3 - Risk 3-dose series) 2024 RSV Immunization Adult Patie nts (1 - Risk 60-74 years 1-dose series) 2024 Influenza Vaccine (#1) 2024 HIB Vaccines Aged Out No longer [...] Documents on File Type Date Recorded Patient Supply Chain Design Manager Expl anation Health Care Decision (hx) 10/04/2021 [...] (hx) 10/04/2021 AD COLLAZO DIRECTIVE Care Teams Christmas Tree Grader Relationship Specialty Start Date End Date Ayse Maier PA PCP - General 10/08/22
--- OUTSIDE RECORDS SUMMARY | 2024-09-16 12:25 | XMS_ITS | Patient Health Record ---
Author Organization [facility] Address [address] [place] [address] Support Name Relationship Address Phone ASHLEE GALLEGOS Emergency Contact BERTA JOHNSON APTS EDIF D [address] [place] [address] NAVARRO NUNEZ Guarantor Unknown Allergies Allergen (clinical drug ingredient) Drug/Non Drug Allergy documented on EMR Reaction Allergy Type Onset Date Status Substance with sulfonamide structure and antibacterial mechanism of action (substance) Sulfa Antibiotics Unknown Drug Allergy Active Reason For Referral No Information Medications Medication SIG (Take, Route, Frequency, Duration) Notes Start Date End Date Status diphenhydrAMINE HCl 50 MG/ML Solution 50mg/ml Injection once 01/12/2021 Activ e Isentress 400 MG Tablet 1 tablet Orally Twice a day Active Montelukast Sodium 10 MG Tablet 1 tablet Orally Once a day Active Rosuvastatin Calcium 10 MG Tablet 1 tablet Orally Once a day Active Albuterol Sulfate (2.5 MG/3ML) 0.083% Nebulization Solution 3 ml as needed Inhalation every 6 hrs Active Flovent HFA 44 MCG/ACT Aerosol 1 puff Inhalation Twice a day Active Social History Sex Assigned At : Social History Observation Description Sex Assigned At Female Plan Of Treatment No Information Insurance Providers Payer Name Payer Address Payer Phone Subscriber Number Group Number Insured Name Patient Relationship to Insured Coverage Start Date Coverage End Date UB PLAN DE EJNA MENONITA VITAL DESO GAYLAANO KISHOR [address] [place] [address] [id number] NAVARRO NUNEZ Self - patient is the insured Medical (General) History Medical History History ICD Code ASTHMA HIPERTENSION VIH
[2024-09-20 16:24] LABS: HIV RNA PCR Qn Copies NOT DETECTED copies/mL (NOT DETECTED); HIV RNA PCR Qn Log Copies NOT DETECTED (NOT DETECTED)
== END 2024-09-16 11:46 | disposition home or self-care (01) ==
LOC: HO.LAB 11:45
PROVIDERS: PCP Physician Assistant Medical; Visit Provider Internal Medicine
DX: B20 Human immunodeficiency virus [HIV] disease (principal)
CPT/HCPCS: 36415; 87536

== ENCOUNTER 2024-12-18 10:13 | Outpatient (REF) | payer OTHER, SELFPAY ==
--- OUTSIDE RECORDS SUMMARY | 2024-12-18 10:17 | XMS_ITS | Encounter Summary ---
Author Organization [facility] Address [address] [place] [address] Care Team Providers Care Full Stack Net Developer Name Role Phone Junie Blevins MD Primary Care Provider [phone] Encounter Details Date Type Department Care Team Description 01/16/2022 Social [facility] [address] [place] [address] Ramone Roland, [facility] [...] on filedocumented in this encounter Care Teams Full Stack Net Developer Relationship Specialty Start Date End Date Junie Blevins MD [address] [place] [phone] PCP - General Pediatrics 12/18/21 documented as of this encounter
--- OUTSIDE RECORDS SUMMARY | 2024-12-18 10:17 | XMS_ITS | Encounter Summary ---
Author Organization [facility] Address [address] [place] [address] Care Team Providers Care Skinning Machine Feeder Name Role Phone Junie Blevins MD Primary Care Provider [phone] Encounter Details Date Type Department Care Team Description 11/20/2021 Social [facility] [address] [place] [address] Ramone Roland, [facility] Social History Tobacco Use Types Packs/Day Years [...] on filedocumented in this encounter Care Teams Skinning Machine Feeder Relationship Specialty Start Date End Date Junie Blevins MD [address] [place] [phone] PCP - General Pediatrics 12/18/21 documented as of this encounter
--- OUTSIDE RECORDS SUMMARY | 2024-12-18 10:17 | XMS_ITS | Encounter Summary ---
Author Organization [facility] Address [address] [place] [address] Care Team Providers Care Fermenter Operator Name Role Phone Junie Blevins MD Primary Care Provider [phone] Encounter Details Date Type Department Care Team Description 05/28/2022 Social [facility] [address] [place] [address] Ramone Roland, [facility] Social History Tobacco Use Types Packs/Day Years [...] on filedocumented in this encounter Care Teams Fermenter Operator Relationship Specialty Start Date End Date Junie Blevins MD [address] [place] [phone] PCP - General Pediatrics 12/18/21 documented as of this encounter
--- OUTSIDE RECORDS SUMMARY | 2024-12-18 10:17 | XMS_ITS | Encounter Summary ---
Author Organization [facility] Address [address] [place] [address] Care Team Providers Care Therapy Director Name Role Phone Junie Blevins MD Primary Care Provider [phone] Encounter Details Date Type Department Care Team Description 05/14/2022 Social [facility] [address] [place] [address] Ramone Roland [facility] Social History Tobacco Use Types Packs/Day Years [...] on filedocumented in this encounter Care Teams Therapy Director Relationship Specialty Start Date End Date Junie Blevins MD [address] [place] [phone] PCP - General Pediatrics 12/18/21 documented as of this encounter
--- OUTSIDE RECORDS SUMMARY | 2024-12-18 10:17 | XMS_ITS | Clinical Summary ---
Author Organization [facility] Address [address] [place] [address] Care Team Providers Care Call Center Team Leader Name Role Phone Junie Blevins MD Primary Care Provider +1 [phone] Allergies No known active allergies Medications Medication Sig Dispensed Refills Start Date End Date Status lidocaine-prilocain e (EMLA) cream Apply topically as needed. To [facility] area 1 hour prior to access 30 [...] 81 08/28/2022 10:52 AM EDT Temperature 36.1 C (97 F) 08/28/2022 10:52 AM EDT Respiratory Rate 18 01/16/2022 3:00 [...] (Colonoscopy) 2009 Breast Cancer Screening (Mammogram) 2014 Hepatitis B Vaccines (1 of 3 - Risk 3-dose series) 2024 RSV Adult > 60+ Yrs or Pregn ant (1 - Risk 60-74 years 1-dose series) 2024 Influenza Vaccine (#1) 2024 RSV Ped < 20 months Aged Out No longe r eligible based on patient's age to complete this topic Care Teams Call Center Team Leader Relationship Specialty Start Date End Date Junie Blevins MD [address] [place] [phone] PCP - General Pediatrics 12/18/21
--- OUTSIDE RECORDS SUMMARY | 2024-12-18 10:17 | XMS_ITS | Patient Health Record ---
Author Organization [facility] Address [address] [place] [address] Support Name Relationship Address Phone ASHLEE GALLEGOS Emergency Contact BERTA JOHNSON APTS [address] [place] [address] NAVARRO NUNEZ Guarantor Unknown Allergies Allergen (clinical [...] Date [employer] PLAN DE JENA MENONITA [facility] [address] GAYLAANO K[address] [place] [address] [id number] NAVARRO NUNEZ Self - patient is the insured Medical (General) History Medical History History ICD Code ASTHMA HIPERTENSION VIH
--- OUTSIDE RECORDS SUMMARY | 2024-12-18 10:17 | XMS_ITS | Encounter Summary ---
Author Organization [facility] Address [address] [place] [address] Care Team Providers Care Sack Maker Name Role Phone Junie Blevins MD Primary Care Provider +1 [phone] Encounter Details Date Type Department Care Team Description 07/04/2021 Social [facility] [address] [place] [address] Ramone Roland MSW Social History Tobacco Use [...] on filedocumented in this encounter Care Teams Sack Maker Relationship Specialty Start Date End Date Junie lBevins MD [address] [place] [phone] PCP - General Pediatrics 12/18/21 documented as of this encounter
--- OUTSIDE RECORDS SUMMARY | 2024-12-18 10:17 | XMS_ITS ---
Author Organization [facility] Address [address] [place] [address] Care Team Providers Care Reeling Machine Setup Operator Name Role Phone Junie Blevins MD Primary Care Provider [phone] Active Problems Problem Noted Date Diagnosed Date [...] Treatment Medications Discontinue Reason Plan Provider Cycles [facility] [place] - DOXORUBICIN / BLEOMYCIN [...] for this patient in [facility]. Treatments may have been administered in another system. Lifetime Dose Tracking * Chemical Lifetime Dose Automatic Entry Manual Entr y Doxorubicin 327.64 mg/m2 (509 mg) 252.64 mg/m2 (392 m g) 75 mg/m2 (117 mg)
[2024-12-21 15:08] LABS: HIV RNA PCR Qn Copies NOT DETECTED copies/mL (NOT DETECTED); HIV RNA PCR Qn Log Copies NOT DETECTED (NOT DETECTED)
[2024-12-23 15:44] LABS: Absolute CD3 Count 1112 cells/uL (840-3060); Absolute CD8 Count 736 cells/uL (180-1170); Percent CD3 Cells 72 % (57-85); Percent CD8 Cells 48 % (12-42)
== END 2024-12-18 10:14 | disposition home or self-care (01) ==
LOC: HO.LAB 10:13
PROVIDERS: PCP Physician Assistant Medical; Visit Provider Internal Medicine
DX: B20 Human immunodeficiency virus [HIV] disease (principal)
CPT/HCPCS: 36415; 86359; 86360; 87536

== ENCOUNTER 2024-12-24 13:33 | Outpatient (AMB) | payer OTHER, SELFPAY ==
--- NOTE | 2024-12-24 13:33 | A.OFFVIS_ITS ---
Vital Signs 12/24/24 13:50 Height 5 ft 3 in Weight 174 lb BMI 30.8 Pulse 75 Pulse Source Pulse Oximeter Pulse Oximetry (%) 96 Oxygen Delivery Method Room Air Intake Visit Reasons: 6 month f/u Marketing Professional Required: Yes Marketing Professional Services: Marketing Professional Present Marketing Professional Name: Emre Muñoz CMA Information Interpreted: clinical only Caustics Loader: Caustics Loader Present Allergies Sulfa (Sulfonamide Antibiotics) Allergy (Mild, Verified 12/24/24 13:50) Unknown HPI Comments Details: History of Present Illness The patient is a 59-year-old female presenting for the evaluation and management of Human Immunodeficiency Virus (HIV) infection. During her last assessment on December 18, her viral load was undetectable, and her CD4 count was 379. She is currently on a regimen of Biktarvy, Descovy, and Tivicate. The patient has no new complaints and maintains stable vital signs, with no evidence of health deterioration. Since her last evaluation, she continues to demonstrate the same health status without new symptom manifestation, continuing her medication regimen without any interruptions or side effects. Review of Systems - General: Denies any complaints - Respiratory: Denies shortness of breath - Cardiovascular: Denies palpitation or other cardiovascular symptoms - Gastrointestinal: Denies abdominal pain - Neurological: Denies any neurological symptoms - Skin: Denies any skin changes or rashes Physical Exam - Vital Signs- Stable - Respiratory- Lungs clear - Cardiovascular- Rhythm normal - Gastrointestinal- Abdomen soft, non-tender - Neurological- Non-tender extremities, no focal findings noted - Skin- Clear Results - Labs: HIV Viral Load - Undetectable (as of 12/18), CD4 Count - 379 Plan Patient was informed and verbally consented to the use of an ambient scribe for clinic note documentation during this visit. 1. Human immunodeficiency virus [HIV] disease B20 HCC 1 The patient remains on her current antiretroviral therapy consisting of Biktarvy, Descovy, and Tivicate, showing an undetectable viral load and a stable CD4 count of 379. She will receive follow-up evaluations for viral load and CD4 count in six months, supported by her primary care provider for regular health maintenance. Adherence to her therapy is excellent, and no side effects are reported. Discussion Notes I discussed with the patient the excellent management of her HIV condition, given her undetectable viral load and stable CD4 count. We went over the benefits of continuing with her current antiretroviral therapy, emphasizing the importance of adherence to her regimen with Biktarvy, Descovy, and Tivicate. I recommended she continue her regular healthcare maintenance and follow-up with her primary care provider in order to revisit her viral load and CD4 count status in six months. We addressed the efficacy of her current regimen, confirming no noticeable side effects, and the plan to monitor her status regularly for any changes. Medical Decision Making The primary focus is the ongoing management of the patient?s HIV infection, currently well-controlled with an undetectable viral load and stable CD4 count. Considering the patient's good health status and absence of new complaints, continuation on the current regimen of Biktarvy, Descovy, and Tivicate is advised. Monitoring will proceed with a follow-up viral load and CD4 count in six months. Her current regimen?s effectiveness and her adherence spare the need for alterations at this time. By maintaining regular follow-up and health care maintenance through her primary care provider, we aim to prevent complications. Patient Instructions - Continue taking Biktarvy, Descovy, and Tivicate as directed. - Maintain regular healthcare appointments with your primary care provider. - Return for a follow-up to check viral load and CD4 count in six months. - Report any new symptoms or side effects to your healthcare provider immediately. [facility] Medical History HIV (human immunodeficiency virus infection) Hodgkin disease Compression fracture of body of thoracic vertebra Left axillary artery thrombus History of thyroid cancer AIDS Surgical History H/O kyphoplasty Family History Other Hypertension Social History Alcohol intake: never Patient Tobacco Use Status: Never used Tobacco Physical Exam Vital Signs: Last Vital Signs Pulse 75 12/24/24 13:50 Pulse Ox 96 12/24/24 13:50 Oxygen Delivery Method Room Air 12/24/24 13:50 BMI result Body Mass Index 30.8 Assessment & Plan Assessment & Plan (1) HIV (human immunodeficiency virus infection): Comment: She has viral load and can transmit virus but denies sexual activity. Code(s): B20 - Human immunodeficiency virus [HIV] disease Category: Medical Plan: as above Orders: Orders HIV-1 RNA QN PCR Expanded 6 Months B20 - Human immunodeficiency virus [HIV] disease Lymphocyte Subset Panel 3 6 Months B20 - Human immunodeficiency virus [HIV] disease Medications: Refilled vsmylmqsa-gydmbkil-ozgcqtg ala 50-200-25 mg (Biktarvy) 1 tab PO DAILY 30 tabs 5RF 30 days Coding Level of Care Code Est Pt Level 3 (95889) Diagnoses HIV (human immunodeficiency virus infection) B20
[2024-12-24 13:50] VITALS: PULSE 75; O2SAT 96; BMI 30.8
--- OUTSIDE RECORDS SUMMARY | 2024-12-24 15:39 | XMS_ITS | Clinical Summary ---
Author Organization [facility] Address [address] [place] [address] Phone Care Team Providers Care Merchandise Examiner Name Role Phone Ayse Maier Primary Care Provider [phone] Allergies Active Allergy Reactions Criticality Noted Date Comments Aspirin Swelling 11/01/2024 Sulfa (Sulfonamide Antibiotics) Swelling 10/18 Medications furosemide (LASIX) 40 mg tablet Take [...] delay rel Take by mouth daily. Active senna-docusate (PERICOLACE) 8.6-50 mg per tablet Take 2 tablets by mouth 1 (one) time each day. Active metoprolol succinate (TOPROL-XL) 25 mg 24 hr tablet Take 1 tablet (25 mg total) by mouth 1 (one) time each day. Do not crush or chew. Active bictegravir-emtr icitabine-tenofo vir alafenamide (BIKTARVY) 50-200-25 mg per tablet Take 1 tablet by mouth 1 (one) time each day. Active amoxicillin-clav ulanate (AUGMENTIN) 875-125 mg per tablet Take 1 tablet by mouth 2 (two) times a day. Active Active Problems Problem Noted Date Diagnosed Date Cardiomyopathy (CMS/HCC V24, CMS/HCC V28) 2022 Overview (11/01/2024): July 2022 echocardiogram revealed EF 15-20%. ACC/AHA Stage C With NYHA class II symptoms Workup including angiogram and cardiac MRI were scheduled, but never completed Assessment & Plan (11/01/2024 2:06 PM EDT): In 2022 patient presented with heart failure. She was diuresed and noted to have severely reduced LV systolic function. Unfortunately her workup was never completed as she was also having chemotherapy at taht time for Hodgkin's lymphoma. Today she looks great and is compensated on exam. She has had multiple medication changes including discontinuation of Entresto and SGLT2 and initiation of furosemide, spironolactone and metoprolol. I will start with an updated echocardiogram. Depending on these results, we will then consider whether or not to restart her workup that was previously recommended. We reviewed heart failure management including low- sodium diet, symptom surveillance, daily weights and medication compliance. The patient is aware they may take extra diuretic for intermittent evidence of mild congestive signs and symptoms. If the increase of frequency of as needed diuretic becomes more regular than they will make our office aware. If the patient has weight gain over 3lbs in one day or 5lbs over several days, they are aware to contact our office. With any severe or sustained symptoms, they are aware to contact EMS via 911 and go to the emergency room. Orders: ECG 12 lead Transthoracic echocardiogram (TTE) complete with PRN contrast, bubble, strain, and 3D order panel; Future perflutren lipid microsphere (DEFINITY) 1.3 mL in sodium chloride 0.9% 8.7 mL injection Chronic systolic heart failure (CMS/HCC V24, CMS /HCC V28) 10/04/2022 Assessment & Plan (11/01/2024 2:06 PM EDT): Orders: ECG 12 lead Transthoracic echocardiogram (TTE) complete with PRN contrast, bubble, strain, and 3D order panel; Future perflutren lipid microsphere (DEFINITY) 1.3 mL in sodium chloride 0.9% 8.7 mL injection Encounters Date Type Department Care Team Description 11/01/2024 1:10 PM EDT Office Visit [facility] [address] [place] [address] Vasyl Armstrong NP Cardiomyopathy, unspecified type (CMS/HCC V24, CMS/HCC V28) (Primary Dx); Chronic systolic heart failure (CMS/HCC V24, CMS/HCC V28) from Last 3 Months Social History Tobacco [...] Sign Reading Time Taken Comments Blood Pressure 126/78 11/01/2024 1:18 PM EDT Pulse 75 11/01/2024 1:18 PM EDT Temperature - - Respiratory Rate - - Oxygen Saturation 98% 11/01/2024 1:18 PM EDT Inhaled Oxygen Concentration - - Weight 75.3 kg (165 lb 14.4 oz) 11/01/2024 1:18 PM EDT Height 157.5 cm (5' 2 ) 11/01/2024 1:18 PM EDT Body Mass Index 30.34 11/01/2024 1:18 PM EDT Plan of Treatment Upcoming Encounters Date Type Department Care Team (Late st Contact Info) Description 01/28/2025 11:00 AM EST Ancillary Procedure [facility] [address] [place] [id number] Health Maintenance Due Date Last Done Comments Breast Cancer Screening 1965 Colorectal Cancer Screening: Colonoscopy 1965 Meningococcal ACWY Vaccine ( 1 - [...] Cervical Cancer Screening: P ap Smear 1985 RSV Immunization Adult Patie nts (1 - Risk 50-74 years 1-dose series) 2014 Hepatitis C Screening 01/20/2022 Social Influencers of Health Screening 01/20/2022 Hypertension/CHF/CAD Annual BMP Blood Test 03/18/2023 Depression Screening 02/18/2024 Hepatitis B Vaccines (1 of 3 - Risk 3-dose series) 2024 Influenza Vaccine (#1) 2024 12/17/2023 HIB Vaccines Aged Out No longer eligi [...] on patient's age to complete this topic Procedures Procedure Name Priority Date/Time Associated Diagnosis Comments ECG 12-LEAD Routine 11/01/2024 2:07 PM EDT Cardiomyopathy, unspecified type (CMS/HCC V24, CMS/HCC V28) Chronic systolic heart failure (CMS/HCC V24, CMS/HCC V28) from Last 3 Months Results * ECG 12 lead (11/01/2024 2:07 PM EDT) Ventricular Rate ECG 75 BPM GEMUSE Atrial Rate 75 BPM GEMUSE P-R Interval 150 ms GEMUSE QRS Duration 78 ms GEMUSE Q-T Interval 418 ms GEMUSE QTc 466 ms GEMUSE P Wave [place]ting 69 degrees GEMUSE R [place] 58 degrees GEMUSE T [place] 61 degrees GEMUSE ECG Interpretation Normal sinus rhythm Normal ECG When compared with ECG of 28-OCT-2022 08:32, No significant change was found Confirmed by Lety MONTALVO JAMES ([id number]) on 11/01/2024 4:02:50 PM GEMUSE 11/01/2024 1:34 PM EDT 11/01/2024 4:02 PM EDT us Vasyl Armstrong GROVE SUPERINTENDENT ECG ORDERABLES Edited Resu lt - Final GEMUSE from Last 3 Months Insurance MEDICAID ADVANTAGE Advance Directives Documents on File Type Date Recorded Patient Russian Teacher Expl anation Health Care Decision (hx) 10/04/2021 [...] (hx) 10/04/2021 AD COLLAZO DIRECTIVE Care Teams Merchandise Examiner Relationship Specialty Start Date End Date Ayse Maier PA PCP - General 10/08/22
--- OUTSIDE RECORDS SUMMARY | 2024-12-24 15:39 | XMS_ITS | Encounter Summary ---
Author Organization [facility] Address [address] [place] [address] Care Team Providers Care Press Secretary Name Role Phone Junie Blevins MD Primary Care Provider [phone] Encounter Details Date Type Department Care Team Description 11/20/2021 Social [facility] [address] [place] [address] Ramone Roland, [facility] Social History Tobacco Use Types Packs/Day Years [...] on filedocumented in this encounter Care Teams Press Secretary Relationship Specialty Start Date End Date Junie Blevins MD [address] [place] [phone] PCP - General Pediatrics 12/18/21 documented as of this encounter
--- OUTSIDE RECORDS SUMMARY | 2024-12-24 15:39 | XMS_ITS | Encounter Summary ---
Author Organization [facility] Address [address] [place] [address] Care Team Providers Care Rubber Tile Floor Layer Name Role Phone Junie Blevins MD Primary Care Provider [phone] Encounter Details Date Type Department Care Team Description 05/28/2022 Social [facility] [address] [place] [address] Ramone Roland, [facility] [...] on filedocumented in this encounter Care Teams Rubber Tile Floor Layer Relationship Specialty Start Date End Date Junie Blevins MD [address] [place] [phone] PCP - General Pediatrics 12/18/21 documented as of this encounter
--- OUTSIDE RECORDS SUMMARY | 2024-12-24 15:39 | XMS_ITS | Encounter Summary ---
Author Organization [facility] Address [address] [place] [address] Care Team Providers Care Slitter Cut Off Operator Name Role Phone Junie Blevins MD Primary Care Provider [phone] Encounter Details Date Type Department Care Team Description 01/16/2022 Social [facility] [address] [place] [address] Ramone Roland, [facility] Social History Tobacco Use Types Packs/Day Years [...] on filedocumented in this encounter Care Teams Slitter Cut Off Operator Relationship Specialty Start Date End Date Junie Blevins MD [address] [place] [phone] PCP - General Pediatrics 12/18/21 documented as of this encounter
--- OUTSIDE RECORDS SUMMARY | 2024-12-24 15:39 | XMS_ITS | Encounter Summary ---
Author Organization [facility] Address [address] [place] [address] Care Team Providers Care School Manager Name Role Phone Junie Blevins MD Primary Care Provider [phone] Encounter Details Date Type Department Care Team Description 05/14/2022 Social [facility] [address] [place] [address] Ramone Roland [facility] Social History Tobacco Use Types Packs/Day Years [...] on filedocumented in this encounter Care Teams School Manager Relationship Specialty Start Date End Date Junie Blevins MD [address] [place] [phone] PCP - General Pediatrics 12/18/21 documented as of this encounter
--- OUTSIDE RECORDS SUMMARY | 2024-12-24 15:39 | XMS_ITS | Clinical Summary ---
Author Organization [facility] Address [address] [place] [address] Care Team Providers Care Director Of Outreach Name Role Phone Junie Blevins MD Primary Care Provider [phone] Allergies No known active allergies Medications Medication Sig Dispensed Refills Start Date End Date Status lidocaine-prilocain e (EMLA) cream Apply topically as needed. To [facility] area 1 hour prior to access [...] age to complete this topic Care Teams Director Of Outreach Relationship Specialty Start Date End Date Junie Blevins MD [address] [place] [phone] PCP - General Pediatrics 12/18/21
--- OUTSIDE RECORDS SUMMARY | 2024-12-24 15:39 | XMS_ITS | Encounter Summary ---
Author Organization [facility] Address [address] [place] [address] Care Team Providers Care Phlebotomist Name Role Phone Junie Blevins MD Primary Care Provider [phone] [phone] Encounter Details Date Type Department Care Team Description 07/04/2021 Social [facility] [address] [place] [id number] Ramone Roland MSW Social History Tobacco Use [...] on filedocumented in this encounter Care Teams Phlebotomist Relationship Specialty Start Date End Date Junie Blevins MD [address] [place] [phone] PCP - General Pediatrics 12/18/21 documented as of this encounter
--- OUTSIDE RECORDS SUMMARY | 2024-12-24 15:39 | XMS_ITS ---
Author Organization [facility] Address [address] [place] [address] Care Team Providers Care Chemical Plant Operator Name Role Phone Junie Blevins MD Primary Care Provider [phone]- [phone] Active Problems Problem Noted Date Diagnosed Date [...] Treatment Medications Discontinue Reason Plan Provider Cycles [facility] [place] [place] - DOXORUBICIN / BLEOMYCIN [...] treatments are documented for this patient in [facility]. Treatments may have been administered in another system. Lifetime Dose Tracking * Chemical Lifetime Dose Automatic Entry Manual Entr y Doxorubicin 327.64 mg/m2 (509 mg) 252.64 mg/m2 (392 m g) 75 mg/m2 (117 mg)
== END 2024-12-24 14:26 | disposition home or self-care (01) ==
LOC: HO.HID 13:33
PROVIDERS: PCP Physician Assistant Medical; Visit Provider Internal Medicine
DX: B20 Human immunodeficiency virus [HIV] disease (principal)
CPT/HCPCS: 99213

== ENCOUNTER → 2024-12-24 13:33 | Outpatient (BNVA) | payer OTHER, SELFPAY | PROVIDERS: PCP Physician Assistant Medical; Visit Provider Internal Medicine | DX: B20 Human immunodeficiency virus [HIV] disease (principal) | CPT/HCPCS: 99212 ==